=== PATIENT | female | born 1980 | race Caucasian/White ===

== ENCOUNTER 2019-07-22 08:03 | Emergency (ER) | payer OTHER ==
[~2019-07-22] VITALS: Ht 162.6 cm; Wt 54.4 kg
== END 2019-07-22 13:44 | disposition home or self-care (01) ==
LOC: ER 08:03
DX: N39.0 Urinary tract infection, site not specified (principal); R31.0 Gross hematuria

== ENCOUNTER 2019-07-23 10:00 | Emergency (ER) | payer OTHER ==
[~2019-07-23] VITALS: Ht 162.6 cm; Wt 54.4 kg
== END 2019-07-23 16:57 | disposition home or self-care (01) ==
LOC: ER 10:10
DX: K62.5 Hemorrhage of anus and rectum (principal); K64.8 Other hemorrhoids

== ENCOUNTER 2019-08-15 06:30 | Day surgery (SDC) | payer OTHER ==
[2019-08-15] MEDS ORDERED: RECTICARE30 GM TOP (08:50)
[2019-08-15] MEDS ORDERED: DICLOFENAC SODI75 MG PO (08:50)
== END 2019-08-15 10:05 | disposition home or self-care (01) ==
LOC: AMB-ENDOS 06:30 → ADM 14:15 → AMB-ENDOS 14:15
DX: K62.89 Other specified diseases of anus and rectum (principal); K64.8 Other hemorrhoids

== ENCOUNTER → 2022-02-18 | Emergency (ER) | payer OTHER ==
[~2022-02-18] VITALS: Ht 162.6 cm; Wt 56.2 kg
[~2022-02-18] MED LIST: ALBUTEROL2.5 MG/3 M IH; DICLOFENAC SODI75 MG PO; FLOVENT HFA12 G1 IH; PROVENTIL HFA6.7 GM IH; RECTICARE30 GM TOP; SINGULAIR 10MG10 MG PO
== END | disposition home or self-care (01) ==
LOC: ER 18:05
DX: J40 Bronchitis, not specified as acute or chronic (principal); A49.3 Mycoplasma infection, unspecified site; Z20.822 Contact with and (suspected) exposure to COVID-19